=== PATIENT | female | born 1995 | race African-American/Black ===

== ENCOUNTER 2016-12-16 15:22 | Emergency (ER) | payer SELFPAY ==
[2016-12-16 15:28] VITALS: BP 125/86
--- NOTE | 2016-12-16 15:31 | ER Document Report ---
HPI - HPI Patient complains to provider of: neck stiffness Pain Level: 5 Context: patient is a 21 year old female p/w neck stiffness that started this morning and has gotten progressively worse throughout the day. States she took acetaminophen and motrin without relief. she cannot move her head out of her position. she has her chin resting on her left shoulder. non tender to touch but hurts with movement. denies previous history of dystonia - DERM Skin Color: Normal Past Medical History - Social History Smoking Status: Unknown if Ever Smoked Family History: Reviewed & Not Pertinent Patient has suicidal ideation: No Patient has homicidal ideation: No Renal/ Medical History: Denies: Hx Peritoneal Dialysis Vertical Provider Document - CONSTITUTIONAL Agree With Documented VS: No - heart rate 98 Exam Limitations: No Limitations General Appearance: WD/WN, Mild Distress - anxious, tearful - INFECTION CONTROL TRAVEL OUTSIDE OF THE [place] IN LAST 30 DAYS: No - HEENT HEENT: Atraumatic, Normal ENT Exam, Normocephalic, PERRLA - NECK Neck: Other - patient remaining in same position. turned to the left, chin down to shoulder. she has limited motion from this position due to pain. not able to straighten her head to midline or to the right. nontender to palpation - MUSCULOSKELETAL/EXTREMETIES Musculoskeletal/Extremeties: MAEW, FROM, Non-Tender, No Edema - NEURO Level of Consciousness: Awake, Alert, Appropriate Motor/Sensory: No Motor Deficit, No Sensory Deficit Course - Re-evaluation Re-evalutation: 12/16/16 17:39 Patient is a 21-year-old female presents with torticollis. Patient states the Valium as well as Flexeril and Toradol for pain. Symptoms have improved patient with significant improvement range of motion in her neck. We'll discharge home and can follow-up with primary care. Per [facility] protocol and guidelines, this case was discussed with supervising physician Dr. Khushbu Leahy prior to discharge Discharge - Discharge Clinical Impression: Torticollis Condition: Good Disposition: HOME, SELF-CARE Instructions: Torticollis ([facility]), Muscle Relaxers ([facility]) Prescriptions: Cyclobenzaprine HCl [Flexeril 5 mg Tablet] 5 mg PO TID #15 tablet Diazepam [Valium 5 mg Tablet] 5 mg PO TID 3 Days Forms: Return to Work
[2016-12-16] MEDS ORDERED: DIAZEPAM 5 MG TABLET PO ONE (15:39)
[2016-12-16] MEDS ORDERED: KETOROLAC TROMETHAMINE 60 MG/2 ML SDV IM ONE (16:31)
[2016-12-16] MEDS ORDERED: CYCLOBENZAPRINE HCL 10 MG TABLET PO ONE (16:31)
== END 2016-12-16 17:20 | disposition home or self-care (01) ==
LOC: ER 15:22
DX: M43.6 Torticollis (principal)
CPT/HCPCS: 99283; 96372; J1885